=== PATIENT | female | born 1985 | race Caucasian/White ===

== ENCOUNTER 2017-03-31 18:10 | Emergency (ER) | payer BC ==
--- NOTE | 2017-03-31 18:22 | ERNOTE ---
Medical Problem HPI - Narrative Date of Service: 03/31/17 - General Chief Complaint: Laceration Time Seen by Provider: 03/31/17 18:15 Source: patient, RN notes reviewed Exam Limitations: no limitations - Immun/Allergies/Home Medications Immunizations: IMMUNIZATION HX Immunizations Up to Date Yes History of Influenza Vaccine Yes Hx Pneumococcal Vaccination No Allergies/Adverse Reactions: Allergies azithromycin [From Zithromax] Allergy (Mild, Verified 03/31/17 18:17) Hives Home Medications: HOME MEDICATIONS NK [No Home Medication] 03/31/17 [Last Taken Unknown] - History of Present History Narrative: 31 y/o female ambulatory to the ED for a laceration to her left wrist. She cut herself with a pocket knife while trying to cut a garden hose. She is unsure of her last tetanus vaccination. Date (Duration): 03/31/17 Time (Timing): 18:00 Review of Systems - Review of Systems Constitutional: Present: no symptoms reported EYE: Present: no symptoms reported ENT: Present: no symptoms reported Respiratory: Present: no symptoms reported Cardiology: Present: no symptoms reported Gastrointestinal/Abdominal: Present: no symptoms reported Genitourinary: Present: no symptoms reported Musculoskeletal: Absent: muscle pain, joint pain, joint swelling Skin: Absent: rash, lesions, lumps, change in color Neurological: Absent: weakness, numbness, tingling Endocrine: Present: no symptoms reported Hematologic/Lymphatic: Absent: easy bruising, easy bleeding Psych: Present: no symptoms reported - Patient's Past Medical History Patient History - Medical: No pertinent hx, Other Patient History - Cardiac/Respiratory: No pertinent hx Patient History - Cancer: No Hx of Cancer Patient History - Surgical Procedures: T & A Patient History - Other: None LMP (females 10-50): Mirena - Social History Living Situations: home Abuse History: No History of abuse Psych History: No pertinent hx Smoking Status: Former smoker Alcohol Use: none Drug Use: none - Immunizations Immunizations Up to Date: No Hx Pneumococcal Vaccination: No History of Influenza Vaccine: Yes Physical Exam - Physical Exam General Appearance: Present: wd/wn, alert, anxious Respiratory: Present: no respiratory distress, no accessory muscle use Cardiovascular/Chest: Present: normal peripheral pulses Extremity Exam: Present: normal except - - laceration left wrist, normal range of motion, no edema Neurological Exam: Present: alert, oriented, normal mood/affect, no motor/ sensory deficits Skin Exam: Present: normal color, warm/dry ED Progress - Vital Signs Patient's Vital Signs:: I have reviewed the patient's vital signs. Vital Signs: Vital Signs 03/31/17 18:11 Temperature 36.2 C L Pulse Rate 67 Respiratory 14 Rate Blood Pressure 111/56 O2 Sat by Pulse 98 Oximetry - Progress/Reassessment Chief Complaint: Laceration Progress:: Improved Procedures Left Volar Wrist Anesthesia: 1% Lidocaine Length of Repair/Wound (cm): 2 Wound's Depth/Shape: into subcutaneous, linear Wound Explored: clean, to base, in bloodless field, no foreign body Wound Intervention: irrigated w/saline Distal NVT: neuro/vasc intact, no tendon injury Wound Repaired With: sutures Suture Size/Type: 5-0, nylon Number of Sutures: 3 Layer Closure: Simple Wound Dressing: sterile dressing applied Complications: Pt sylvia procedure well Departure - Departure Clinical Impression: Laceration of wrist, left Qualifiers: Encounter type: initial encounter Qualified Code(s): S61.512A - Laceration without foreign body of left wrist, initial encounter Disposition: Home Follow Up Needed Condition: Good Instructions: Sutured Wound Care, [id number] Additional Instructions: Keep dressing dry and in place for 48 hours Can then wash wound gently with soap and water Apply antibiotic ointment and bandage as needed Have sutures removed in 7 to 10 days
[2017-03-31] MEDS ORDERED: DIPHTH,PERTUSS(ACELL),TET VAC 0.5 ML VIAL IM ONE ×2 (18:23→18:24)
[2017-03-31] MEDS ORDERED: LIDOCAINE HCL 20 ML VIAL ONE (18:24)
[2017-03-31 19:16] VITALS: BP 101/61
== END 2017-03-31 19:15 | disposition home or self-care (01) ==
LOC: ER 18:10
PROC: 0JQH3ZZ Repair Left Lower Arm Subcutaneous Tissue and Fascia, Percutaneous Approach (ICD-10-PCS; principal; 2017-03-31)
DX: S61.512A Laceration without foreign body of left wrist, initial encounter (principal); W26.0XXA Contact with knife, initial encounter; Y93.H2 Activity, gardening and landscaping; Z23 Encounter for immunization; Z87.891 Personal history of nicotine dependence